=== PATIENT | male | born 1990 | race African-American/Black ===

== ENCOUNTER 2021-04-14 17:27 | Emergency (ER) | payer SELFPAY ==
[~2021-04-14] VITALS: Ht 172.7 cm; Wt 90.0 kg
[2021-04-14 17:35] VITALS: BP 124/64
[2021-04-14] MEDS ORDERED: MUPIROCIN 2 % OINTMENT 22GM TUBE. TP STA (17:51)
[2021-04-14] MEDS ORDERED: DIPHTH,PERTUSS(ACELL),TET TOX 0.5 ML DISP.SYRIN. VAX IM ONE (18:00)
[2021-04-14] MEDS ORDERED: HYDR-2761 PO ×2 (18:14→18:39)
[2021-04-14] MEDS ORDERED: CEPH500T PO ×2 (18:14→18:39)
--- NOTE | 2021-04-14 18:14 | PHYS DOC ---
Past Medical History Past Surgical History: No Surgical History (ELIZABETH CHI APRN) General Adult EDM: Chief Complaint: ABSCESS HPI: HPI: Patient is a 31 year old male who presents to the ED today complaining of an abscess on the right inner thigh for 2 days. Patient states he has tried to drain it with trace amount of blood coming out. Denies any fever. Reports history of abscesses to the region from ingrown hair (ELIZABETH CHI APRN) Review of Systems: Review of Systems: Constitutional: Denies fever or chills. [] Musculoskeletal: Denies back pain or joint pain. [] Integument: Reports abscess on the right inner thigh Neurologic: Denies headache, focal weakness or sensory changes. [] Psychiatric: Denies depression or anxiety. [] (ELIZABETH CHI APRN) Heart Score: C/O Chest Pain: N/A Risk Factors: Risk Factors: DM, Current or recent (<one month) smoker, HTN, HLP, family history of CAD, obesity. Risk Scores: Score 0 - 3: 2.5% MACE over next 6 weeks - Discharge Home Score 4 - 6: 20.3% MACE over next 6 weeks - Admit for Clinical Observation Score 7 - 10: 72.7% MACE over next 6 weeks - Early Invasive Strategies (ELIZABETH CHI APRN) Current Medications: Current Medications Medications (Trade) Dose Ordered Sig/Judy Start Time Stop Time Status Last Admin Dose Admin Diphtheria/ Tetanus/Acell Pertussis (Boostrix) 0.5 ml ONCE ONCE 04/14/21 18:00 04/14/21 18:04 DC Mupirocin (Bactroban) 1 nicholas 1X STAT 04/14/21 17:51 04/14/21 18:04 DC (ELIZABETH CHI APRN) Allergies: Allergies: Allergies Coded Allergies Type Severity Reaction Last Updated Verified No Known Drug Allergies 04/14/21 No (ELIZABETH CHI APRN) Physical Exam: PE: Constitutional: Well developed, well nourished, no acute distress, non-toxic appearance. Skin: Right inner thigh with an indurated area roughly 0.3 x 0.3 cm, the area is firm tender to touch erythematous no fluctuance. Back: No tenderness, no CVA tenderness. [] Extremities: No tenderness, no cyanosis, no clubbing, ROM intact, no edema. [] Neurologic: Alert and oriented X 3, normal motor function, normal sensory function, no focal deficits noted. [] Psychologic: Affect normal, judgement normal, mood normal. [] (ELIZABETH CHI PROFESSIONAL APPLICATION DESIGNER) Current Patient Data: Vital Signs: Vital Signs Date Time Temp Pulse Resp B/P (MAP) Pulse Ox O2 Delivery O2 Flow Rate FiO2 04/14/21 17:35 98.8 86 16 124/64 (84) 100 Room Air 98.8 (ELIZABETH CHI PROFESSIONAL APPLICATION DESIGNER) EKG: EKG: [] (ELIZABETH CHI PROFESSIONAL APPLICATION DESIGNER) Radiology/Procedures: Radiology/Procedures: [] (ELIZABETH CHI PROFESSIONAL APPLICATION DESIGNER) Course & Med Decision Making: Course & Med Decision Making Pertinent Labs and Imaging studies reviewed. (See chart for details) This is a 31-year-old male patient presented to the ED today with an abscess on the right inner thigh from ingrown hairs. The abscess is not ready to drain. Discharged with mupirocin which was provided in the ED as well as cephalexin prescription. Follow-up with general surgeon or PCP. Warm compresses recommen ded to the area, tetanus updated (ELIZABETH CHI PROFESSIONAL APPLICATION DESIGNER) Dragon Disclaimer: Dragon Disclaimer: This electronic medical record was generated, in whole or in part, using a voice recognition dictation system. (ELIZABETH CHI PROFESSIONAL APPLICATION DESIGNER) Departure Departure Impression: Primary Impression: Abscess of right thigh Additional Impression: Cellulitis of right thigh Disposition: HOME / SELF CARE / HOMELESS Condition: STABLE Referrals: EDITA MERCADO MD follow up in one week Patient Instructions: Abscess Additional Instructions: You have an abscess on the right inner thigh, please apply warm compresses to the area twice a day for 10 days. Please apply mupirocin cream provided in the ED twice a day to the area for 10 days. Take the prescribed antibiotics as or dered until completed. Come back to the ED at any point wound condition worsens Patients Care and treatment plan provided by ER Nurse Practitioner. I was not involved in this patients care but was available for consult. Patient's chart reviewed. Scripts Hydrocodone Bit/Acetaminophen (HYDROCODONE-APAP 5-325 ) 1 Tab Tablet 1 TAB PO PRN Q6HRS PRN for PAIN, #10 TAB 0 Refills Prov: MUTUNGA,ELIZABETH M PROFESSIONAL APPLICATION DESIGNER 04/14/21 Cephalexin (CEPHALEXIN) 500 Mg Tablet 1 TAB PO TID, #30 TAB Prov: ELIZABETH CHI APRN 04/14/21 ELIZABETH CHI APRN Apr 14, 2021 18:14 VLADIMIR MULLEN DO Apr 16, 2021 18:00
== END 2021-04-14 18:59 | disposition home or self-care (01) ==
LOC: ER 17:27
DX: L03.115 Cellulitis of right lower limb (principal)
CPT/HCPCS: 90471; 90715; 99283